=== PATIENT | male | born 1950 | race Caucasian/White ===

== ENCOUNTER 2023-11-23 09:52 | Outpatient (CLI) | payer OTHER | END 2023-11-23 09:59 | disposition home or self-care (01) | LOC: RAD 09:52 | PROVIDERS: ATTEND Surgery | DX: D12.3 Benign neoplasm of transverse colon (principal) ==

== ENCOUNTER 2023-11-28 12:30 | Inpatient (IN) | payer OTHER ==
[~2023-11-28] VITALS: Ht 175.3 cm; Wt 136.1 kg
[2023-11-28] MEDS ORDERED: LOSARTAN-HCTZ1 EACH PO (14:06)
[2023-11-28] MEDS ORDERED: TOPROL XL50 M1 PO (14:06)
[2023-11-28] MEDS ORDERED: JARDIANCE25 MG PO (14:06)
[2023-11-28] MEDS ORDERED: METFORMIN HCL1000 M2 PO (14:06)
[2023-11-28] MEDS ORDERED: ZETIA10 MG PO (14:07)
[2023-11-28] MEDS ORDERED: FENOFIBRIC ACI105 MG PO (14:07)
[2023-11-28] MEDS ORDERED: LEVEMIR100 UNIT/1 (14:08)
[2023-11-28] MEDS ORDERED: OZEMPIC1 MG/0.71 (14:09)
[2023-11-28] MEDS ORDERED: NOVOLOG MI100 UNIT/1 (14:09)
[2023-11-28] MEDS ORDERED: NOVOLOG100 UNIT/1 (14:10)
[2023-12-04] MEDS ORDERED: CEFTRIAXONE SODIUM 2,000 MG VIAL ONE (08:54)
[2023-12-04] MEDS ORDERED: METRONIDAZOLE/SODIUM CHLORIDE 500 MG/100 ML PIGGYBACK IV ONE (08:55)
[2023-12-04] MEDS ORDERED: LIDOCAINE HCL 1%/EPINEPHRINE 20ML VIAL IJ ONE (10:08)
[2023-12-04] MEDS ORDERED: BUPIVACAINE HCL/Mpf 0.5% 10ML VIAL ONE (10:08)
[2023-12-04] MEDS ORDERED: SUGAMMADEX SODIUM 200 MG/2 ML VIAL IV ONE (11:34)
[2023-12-04] MEDS ORDERED: MORPHINE SULFATE 4 MG/ML VIAL IV ONE (14:50)
[2023-12-04] MEDS ORDERED: MORPHINE SULFATE 4 MG/ML CARTRIDGE IV PRN (15:30)
[2023-12-04] MEDS ORDERED: ONDANSETRON HCL 2 MG/ML VIAL IV PRN (15:30)
[2023-12-04] MEDS ORDERED: RINGERS SOLUTION,LACTATED 1,000 ML IV SCH (15:30)
[2023-12-04] MEDS ORDERED: DEXTROSE 50 % IN WATER 0.5 G/ML DISP.SYRIN IV PRN ×2 (15:30→17:15)
[2023-12-04] MEDS ORDERED: OxyCODONE HCL 5 MG TABLET (ROXICODONE) PO PRN (15:30)
[2023-12-04 16:45] LABS: HEMATOCRIT 39.7 % (39.0-48.0); HEMOGLOBIN 13.2 g/dL (13-16.00); MEAN CELL VOLUME 105.7 fL (80.0-100.00); MEAN CORPUSCULAR HEMOGLOBIN 35.1 pg (27.00-32.0); MEAN CORPUSCULAR HGB CONC 33.2 g/dl (32.0-36.0); PLATELET COUNT 219 K/uL (150-450); RED BLOOD COUNT 3.75 M/uL (4.00-6.00); RED CELL DISTRIBUTION WIDTH 14.3 % (11.5-14.5)
[2023-12-04] MEDS ORDERED: HYOSCYAMINE SULFATE 0.125 MG TAB.SUBL SL SCH (17:00)
[2023-12-04] MEDS ORDERED: GABAPENTIN 300 MG CAPSULE PO SCH (17:00)
[2023-12-04] MEDS ORDERED: METOCLOPRAMIDE HCL 5 MG/ML VIAL IV SCH (17:00)
[2023-12-04] MEDS ORDERED: POLYETHYLENE GLYCOL 3350 17 GM BLIST.PACK PO SCH (17:00)
[2023-12-04] MEDS ORDERED: INSULIN LISPRO 1,000 UNIT/10 ML UNITS SUBCUTANEO PRN (17:15)
[2023-12-04] MEDS ORDERED: ENALAPRILAT DIHYDRATE 1.25 MG/ML VIAL IV PRN (17:15)
[2023-12-04] MEDS ORDERED: GABAPENTIN 300 MG CAPSULE PO ONE (17:56)
[2023-12-04] MEDS ORDERED: HYOSCYAMINE SULFATE 0.125 MG TAB.SUBL ONE (17:56)
[2023-12-04 19:19] LABS: ABG PH 7.324 (7.35-7.45); ABG PO2 80.7 mmHg (80-100); BASE EXCESS -9.3 mmol/l; BICARBONATE 15.2 mmol/l (23-25); SaO2 94.3 %; Tco2 16.2 mmol/l
[2023-12-04 19:22] LABS: allen test SATISFACTORY; o2 21 %; puncture site RADIAL RIGHT
[2023-12-04] MEDS ORDERED: ACETAMINOPHEN 500 MG GEL..CAP PO ONE (19:44)
[2023-12-04] MEDS ORDERED: FAMOTIDINE/PF 20 MG/2 ML VIAL ONE (19:44)
[2023-12-04] MEDS ORDERED: ACETAMINOPHEN 500 MG GEL..CAP PO SCH (20:00)
[2023-12-04] MEDS ORDERED: FAMOTIDINE/PF 20 MG/2 ML VIAL IV PUSH SCH (21:00)
[2023-12-05 01:00] VITALS: BP 118/77; O2SAT 99
[2023-12-05 07:52] VITALS: BP 106/68; O2SAT 95
[2023-12-05 07:55] VITALS: O2SAT 93
[2023-12-05 08:45] LABS: HEMATOCRIT 35.5 % (39.0-48.0); HEMOGLOBIN 12.1 g/dL (13-16.00); MEAN CELL VOLUME 104.2 fL (80.0-100.00); MEAN CORPUSCULAR HEMOGLOBIN 35.6 pg (27.00-32.0); MEAN CORPUSCULAR HGB CONC 34.1 g/dl (32.0-36.0); PLATELET COUNT 182 K/uL (150-450); RED BLOOD COUNT 3.41 M/uL (4.00-6.00); RED CELL DISTRIBUTION WIDTH 14.4 % (11.5-14.5)
[2023-12-05] MEDS ORDERED: LOSARTAN/HYDROCHLOROTHIAZIDE 1 UDTAB TABLET PO SCH (09:00)
[2023-12-05] MEDS ORDERED: LACTOBACILLUS ACIDOPHILUS 1 CAP CAP PO SCH (09:00)
[2023-12-05] MEDS ORDERED: METOPROLOL SUCCINATE 50 MG TAB.SR.24H PO SCH (09:00)
[2023-12-05 09:05] LABS: ALBUMIN 3.3 gm/dL (3.4-5.0); CALCIUM 8.4 mg/dL (8.5-10.1); CREATININE SERUM 1.16 mg/dL (0.70-1.30); GFR 62.24; MAGNESIUM 1.9 mg/dL (1.8-2.4); POTASSIUM 4.4 mEq/L (3.5-5.1)
[2023-12-05 14:24] LABS: ABG PH 7.441 (7.35-7.45); ABG PO2 62.2 mmHg (80-100); ABG pCO2 34.3 mmHg (35-45); BASE EXCESS -0.6 mmol/l; BICARBONATE 22.8 mmol/l (23-25); SaO2 92.4 %; Tco2 23.9 mmol/l
[2023-12-05 16:21] LABS: allen test SATISFACTORY; o2 21 %; puncture site RADIAL LEFT
[2023-12-05 16:34] VITALS: BP 118/63; O2SAT 98
[2023-12-05] MEDS ORDERED: ENOXAPARIN SODIUM 40 MG/0.4 ML SYRINGE SUBCUTANEO SCH (17:00)
[2023-12-06] VITALS: BP 84/61; O2SAT 94
[2023-12-06 08:00] VITALS: BP 103/68; O2SAT 94
[2023-12-06] MEDS ORDERED: ENOXAPARIN SODIUM 40 MG/0.4 ML SYRINGE SUBCUTANEO SCH (09:00)
[2023-12-06 13:24] LABS: HEMATOCRIT 33.2 % (39.0-48.0); HEMOGLOBIN 11.6 g/dL (13-16.00); MEAN CELL VOLUME 102.7 fL (80.0-100.00); MEAN CORPUSCULAR HEMOGLOBIN 35.9 pg (27.00-32.0); PLATELET COUNT 162 K/uL (150-450); RED BLOOD COUNT 3.24 M/uL (4.00-6.00); RED CELL DISTRIBUTION WIDTH 14.7 % (11.5-14.5)
[2023-12-06 14:19] LABS: CALCIUM 9.1 mg/dL (8.5-10.1); CREATININE SERUM 1.06 mg/dL (0.70-1.30); GFR 69.07; MAGNESIUM 2.1 mg/dL (1.8-2.4); POTASSIUM 4.19 mEq/L (3.5-5.1)
[2023-12-06 14:30] LABS: PHOSPHOROUS 1.7 mg/dL (2.5-4.9)
[2023-12-06] MEDS ORDERED: POTASSIUM PHOS,M-BASIC-D-BASIC 3 MM/ML VIAL IV NR (14:45)
[2023-12-06] MEDS ORDERED: INSULIN NPH HUMAN ISOPHANE 1,000 UNITS/10 ML UNITS SUBCUTANEO STA (15:00)
[2023-12-06] MEDS ORDERED: INSULIN NPH HUMAN ISOPHANE 1,000 UNITS/10 ML UNITS SUBCUTANEO SCH (16:00)
[2023-12-06 17:14] VITALS: BP 100/63; O2SAT 98
[2023-12-07] VITALS: BP 95/55; O2SAT 96
[2023-12-07] MEDS ORDERED: INSULIN NPH HUMAN ISOPHANE 1,000 UNITS/10 ML UNITS SUBCUTANEO SCH ×2 (07:30→16:00)
[2023-12-07] MEDS ORDERED: INTESTINEX680 M1 PO (07:41)
[2023-12-07] MEDS ORDERED: LEVSIN/SL0.125 MG SL (07:41)
[2023-12-07] MEDS ORDERED: NEURONTIN300 MG PO (07:41)
[2023-12-07 08:00] VITALS: BP 139/69; O2SAT 97
[2023-12-08] MEDS ORDERED: INSULIN NPH HUMAN ISOPHANE 1,000 UNITS/10 ML UNITS SUBCUTANEO SCH (07:30)
== END 2023-12-07 13:15 | disposition home or self-care (01) | DRG 330 ==
LOC: O/R 12-04 05:30 → SURH 12-04 05:30
PROVIDERS: Internal Medicine Geriatric Medicine; ADMIT Surgery; ATTEND Surgery
PROC: 07BB4ZZ Excision of Mesenteric Lymphatic, Percutaneous Endoscopic Approach (ICD-10-PCS; 2023-12-04)
PROC: 0DNW4ZZ Release Peritoneum, Percutaneous Endoscopic Approach (ICD-10-PCS; 2023-12-04)
PROC: 4A12X4Z Monitoring of Cardiac Electrical Activity, External Approach (ICD-10-PCS; 2023-12-04)
PROC: 0DTF4ZZ Resection of Right Large Intestine, Percutaneous Endoscopic Approach (ICD-10-PCS; principal; 2023-12-04 14:45)
DX: D12.3 Benign neoplasm of transverse colon (principal); E87.20 Acidosis, unspecified; R59.0 Localized enlarged lymph nodes; G47.30 Sleep apnea, unspecified; E11.9 Type 2 diabetes mellitus without complications; Z79.4 Long term (current) use of insulin; D64.9 Anemia, unspecified